=== PATIENT | female | born 1955 | race Caucasian/White ===

== ENCOUNTER 2017-01-26 06:38 | Emergency (ER) | payer SELFPAY ==
[~2017-01-26 06:38] MED LIST: *UNABLE3; ALEVE220 MG PO; ASAB PO; BENTYL10 PO; COREG3 PO; COREG6 PO; COZAAR100 MG PO; EFFEXOR PO; EFFEXOR XR; EFFEXOR XR150 MG PO; ENDOCET1 TAB PO; GLUCOPHAGE1000 MG PO; GLUCPH PO; HUMALOGMIX SC; I40 PO; L40 PO; LANTUSCART SC; LASIX PO; LEVOTHYROXIN88 MCG PO; LEXAPRO10 PO; LIPITOR40 PO; LISINOPRIL PO; LOP25 PO; LOSARTAN PO; METFORMIN; METFORMIN PO; MIRALAXPKT PO; PLAVIX PO; PRIN10 PO; PROPRANOLOL PO; SENTAB PO; SYN075 PO; SYN88 PO; SYNTHROID; SYNTHROID PO; VITAMIN D OTC PO; VITAMIN D PO; VITAMIN D1000 UNI1 PO; ZOCOR PO; ZOCOR10 PO; ZOCOR20 PO; ZOLOFT PO; ZOLOFT25 MG PO
[2017-01-26 06:44] LABS: BASOPHILS 0.1 %; BASOPHILS ABSOLUTE 0.01 10/3/uL (0.0-0.16); EOSINOPHILS 2.5 %; EOSINOPHILS ABSOLUTE 0.19 10/3/uL (0.0-0.53); ER CBC TAT 0 Hrs 08 Mins; HEMATOCRIT 29.8 % (36.0-48.0); HEMOGLOBIN 10.5 g/dL (12.0-16.0); IMMATURE GRANULOCYTES 0.1 %; IMMATURE GRANULOCYTES ABSOLUTE 0.01 10/3/uL (0.0-0.11); LYMPHOCYTES 20.7 %; LYMPHOCYTES ABSOLUTE 1.56 10/3/uL (0.67-4.30); MEAN CORPUS HGB CONC 35.2 g/dL (32.0-36.0); MEAN CORPUSCULAR HEMOGLOB 29.9 pg (26.0-34.0); MEAN PLATELET VOLUME 9.1 fL (9.2-13.0); MONOCYTES 7.8 %; MONOCYTES ABSOLUTE 0.59 10/3/uL (0.21-1.20); NEUTROPHILS 68.8 %; NEUTROPHILS ABSOLUTE 5.17 10/3/uL (2.02-8.40); PLATELET COUNT 220 10/3/uL (150-400); RBC DISTRIBUTION WIDTH 13.7 % (12.0-16.0); RED CELL COUNT 3.51 10/6/uL (4.0-5.6); WHITE BLOOD CELLS 7.5 10/3/uL (4.5-10.5)
[2017-01-26 06:45] LABS: MEAN CORPUSCULAR VOLUME 84.9 fL (80-100)
[2017-01-26 06:46] LABS: MANUAL DIFF NO %
[2017-01-26 06:49] LABS: PARTIAL THROMBO TIME 27.9 SEC (22.5-37.2); PROTIME (NOT ORD) 13.3 SEC (12.0-14.5)
[2017-01-26 06:59] LABS: CALCIUM, SERUM 8.5 MG/DL (8.5-10.4); CHEST PAIN PROFILE TAT 0 Hrs 23 Mins; CHLORIDE, SERUM 108 MMOL/L (96-112); CO2 (CARBON DIOXIDE) 27 MMOL/L (24-34); CREATININE 1.25 MG/DL (0.55-1.02); GFR AFRICAN AMERICAN 53 ML/MIN (>=60); GFR NON AFRICAN AMERICAN 46 ML/MIN (>=60); POTASSIUM, SERUM 4.2 MMOL/L (3.5-5.3); SODIUM, SERUM 144 MMOL/L (135-148); TROPONIN I 0.03 NG/ML (<0.05)
[2017-01-26 07:02] LABS: BUN (BLOOD UREA NITROGEN) 27 MG/DL (6-23); GLUCOSE, SERUM 170 MG/DL (60-99)
== END 2017-01-26 09:04 | disposition home or self-care (01) ==
LOC: ER 06:38
PROVIDERS: Specialist
DX: J81.1 Chronic pulmonary edema (principal); N18.9 Chronic kidney disease, unspecified; I13.0 Hypertensive heart and chronic kidney disease with heart failure and stage 1 through stage 4 chronic kidney disease, or unspecified chronic kidney disease; I50.9 Heart failure, unspecified; I25.2 Old myocardial infarction; E11.22 Type 2 diabetes mellitus with diabetic chronic kidney disease; F17.200 Nicotine dependence, unspecified, uncomplicated; Z95.5 Presence of coronary angioplasty implant and graft; Z88.1 Allergy status to other antibiotic agents; Z79.82 Long term (current) use of aspirin; Z79.899 Other long term (current) drug therapy; Z79.4 Long term (current) use of insulin
CPT/HCPCS: 70450; 71010; 80048; 83735; 83880; 84484; 85025; 85610; 85730; 93005; 96374; 99285; J1940